=== PATIENT | female | born 1970 | race Hispanic/Latino ===

== ENCOUNTER 2016-08-07 15:52 | Emergency (ER) | payer BC ==
[2016-08-07] MEDS ORDERED: MOTRIN PO ONE (17:14)
--- NOTE | 2016-08-07 17:16 | Emergency Department Report ---
ED Extremity Problem HPI - General Chief complaint: Extremity Injury, Lower Stated complaint: LFT FOOT INJURY Time Seen by Provider: 08/07/16 17:08 Source: patient Mode of arrival: Ambulatory Limitations: No Limitations - History of Present Illness Initial comments: PT states when she was walking in the dark this am, she accidentally kicked a dresser. PT noticed bruising and swelling but it was too late to call out of work. PT went to work and was called off at 1530 so she could get her foot seen about. PT states her pain is 4/10 when not walking and 8/10 when walking or standing. PT states she took OtC Tylenol this am around 0600 but no relief of pain. PT states when she walks, she feels like her foot is popping. Onset/Timin -: Sudden, hour(s) Location: left, toe History of Same: No Radiation: proximal Severity scale (0 -10): 8 Quality: aching, sharp (with pressure ) Consistency: constant Improves with: elevation, rest Worsens with: weight bearing, walking, palpation Associated Symptoms: denies other symptoms - Related Data Home Medications Medication Instructions Recorded Confirmed Last Taken Omeprazole [PriLOSEC] 40 mg PO DAILY 04/13/14 10/12/15 10/11/15 Multivitamin Tab [Multiple Vitamin 1 each PO QDAY 09/24/15 10/12/15 10/11/15 TAB (Theragran)] Valsartan/Hydrochlorothiazide 1 tab PO QDAY 09/24/15 10/12/15 10/11/15 21:00 [Diovan Hct 160-25 mg] Previous Rx's Medication Instructions Recorded Last Taken Type HYDROcodone/APAP 5-325 [[place] 1 each PO Q6HR PRN #10 tablet 08/07/16 Unknown Rx 5/325] Ibuprofen [Motrin] 600 mg PO Q8H PRN #20 tablet 08/07/16 Unknown Rx Allergies Allergy/AdvReac Type Severity Reaction Status Date / Time No Known Allergies Allergy Verified 04/13/14 16:03 ED Review of Systems ROS: Stated complaint: LFT FOOT INJURY Other details as noted in HPI Comment: All other systems reviewed and negative Constitutional: denies: fever Cardiovascular: other (pt states she is currently on Diovan for htn) Musculoskeletal: as per HPI, joint swelling Skin: change in color Neurological: abnormal gait ED Past Medical Hx - Past Medical History Previous Medical History?: Yes Hx Hypertension: Yes (FOR 15 YRS) Hx GERD: Yes Hx Renal Disease: No Hx Seizures: No Hx HIV: No - Surgical History Past Surgical History?: Yes Additional Surgical History: tubal ligation hernia repair - Social History Smoking Status: Never Smoker Substance Use Type: None - Medications Home Medications: Home Medications Medication Instructions Recorded Confirmed Last Taken Type Omeprazole [PriLOSEC] 40 mg PO DAILY 04/13/14 10/12/15 10/11/15 History Multivitamin Tab [Multiple Vitamin 1 each PO QDAY 09/24/15 10/12/15 10/11/15 History TAB (Theragran)] Valsartan/Hydrochlorothiazide 1 tab PO QDAY 09/24/15 10/12/15 10/11/15 21:00 History [Diovan Hct 160-25 mg] HYDROcodone/APAP 5-325 [[place] 1 each PO Q6HR PRN #10 tablet 08/07/16 Unknown Rx 5/325] Ibuprofen [Motrin] 600 mg PO Q8H PRN #20 tablet 08/07/16 Unknown Rx ED Physical Exam - General Limitations: No Limitations General appearance: alert, in no apparent distress - Head Head exam: Present: atraumatic, normocephalic, normal inspection - Eye Eye exam: Present: EOMI. Absent: conjunctival injection - ENT ENT exam: Present: normal exam, normal external ear exam - Neck Neck exam: Present: normal inspection, full ROM - Respiratory Respiratory exam: Absent: respiratory distress, wheezes, accessory muscle use - Cardiovascular Cardiovascular Exam: Present: regular rate, normal rhythm - Extremities Exam Extremities exam: Present: tenderness, joint swelling - Expanded Lower Extremity Exam Left Ankle exam: Present: normal inspection, full ROM. Absent: tenderness Foot/Toe exam: Present: tenderness, swelling, ecchymosis (3rd MTP joint). Absent: tenderness at base of 5th metatarsal Neuro vascular tendon exam: Absent: pulse deficit Gait: Positive: antalgic - Neurological Exam Neurological exam: Present: alert, oriented X3 - Psychiatric Psychiatric exam: Present: normal affect, normal mood - Skin Skin exam: Present: warm, dry, intact, ecchymosis ED Course Vital Signs 08/07/16 08/07/16 15:57 18:07 Temperature 98.4 F Pulse Rate 111 H 88 Respiratory 18 18 Rate Blood Pressure 155/101 Blood Pressure 148/92 [Left] O2 Sat by Pulse 100 99 Oximetry - Reevaluation(s) Reevaluation #1: 08/07/16 17:31 PT aware of my interpretation of her XR. PT aware she will need ortho follow up. pt aware no driving, drinking, or working after narcotics. PT offered post op shoe, pt declined. PT states she has a hard sole post op shoe at home. Reevaluation #2: 08/07/16 17:35 pt aware of her initial bp reading and need for follow up - Pulse Oximetry Interpretation Digit-Finger Initial Pulse Oximetry Readin Actions Taken: none ED Medical Decision Making - Radiology Data Radiology results: image reviewed interpreted by me: Xr L foot - 3rd proximal phalange fx - Differential Diagnosis fracture, contusion Critical Care Time: No Critical care attestation.: If time is entered above; I have spent that time in minutes in the direct care of this critically ill patient, excluding procedure time. ED Disposition Clinical Impression: Toe fracture, left Qualifiers: Encounter type: initial encounter Toe: lesser toe Fracture type: closed Phalanx : proximal Fracture alignment: nondisplaced Qualified Code(s): S92.515A - Nondisplaced fracture of proximal phalanx of left lesser toe(s), initial encounter for closed fracture Disposition: DISCHARGED TO HOME OR SELFCARE Is pt being admited?: No Does the pt Need Aspirin: No Condition: Stable Instructions: Toe Fracture (ED), RICE Therapy (ED) Additional Instructions: Follow up with Ortho for your Toe Follow up with PCP for BP recheck No driving or ETOH after taking [place] Prescriptions: HYDROcodone/APAP 5-325 [[place] 5/325] 1 each PO Q6HR PRN #10 tablet PRN Reason: Pain Ibuprofen [Motrin] 600 mg PO Q8H PRN #20 tablet PRN Reason: Pain Referrals: KELLEY ABREU MD [Staff Physician] - 3-5 Days DANIEL HICKEY MD [Staff Physician] - 3-5 Days Forms: Work/School Release Form(ED) Time of Disposition: 17:39
[2016-08-07 18:09] VITALS: BP 148/92
--- NOTE | 2016-08-08 07:28 | XRay Report ---
LEFT FOOT, 2 views: History: Left foot injury. The bony architecture is intact. Bony alignment is normal. No soft tissue abnormalities are seen. The joint spaces appear preserved. IMPRESSION: Normal left foot.
== END 2016-08-07 18:07 | disposition home or self-care (01) ==
LOC: ED 15:52
DX: S92.515A Nondisplaced fracture of proximal phalanx of left lesser toe(s), initial encounter for closed fracture (principal); I10 Essential (primary) hypertension; K21.9 Gastro-esophageal reflux disease without esophagitis; W22.8XXA Striking against or struck by other objects, initial encounter; Y93.9 Activity, unspecified; Y92.9 Unspecified place or not applicable; Y99.9 Unspecified external cause status
CPT/HCPCS: 99283

== ENCOUNTER 2016-08-08 09:32 | Day surgery (SDC) | payer BC ==
[2016-08-08] MEDS ORDERED: NACL 0.9% 1000 ML 1,000 ML IV SCH (11:00)
[2016-08-08] MEDS ORDERED: DIPRIVAN 10 MG/ML IV ONE ×2 (11:34)
--- NOTE | 2016-08-08 11:50 | Anesthesia Consultation ---
Anesthesia Consult and Med Hx Date of service: 08/08/16 - Airway Anesthetic Teeth Evaluation: Good, Bridges (premanent upper front) ROM Head & Neck: Adequate Mental/Hyoid Distance: Adequate Mallampati Class: Class II Intubation Access Assessment: Probably Good - Pulmonary Exam CTA: Yes - Cardiac Exam Cardiac Exam: RRR - Pre-Operative Health Status ASA Pre-Surgery Classification: ASA3 Proposed Anesthetic Plan: MAC - Pulmonary Hx Smoking: No Hx Sleep Apnea: No - Cardiovascular System Hx Hypertension: Yes - Central Nervous System Hx Neuromuscular Disorder: No Hx Seizures: No CVA: No Hx Psychiatric Problems: No - Gastrointestinal Hx Gastroesophageal Reflux Disease: Yes - Endocrine Hx Renal Disease: No Hx Insulin Dependent Diabetes: No Hx Thyroid Disease: No - Other Systems Hx Alcohol Use: No Hx Cancer: No Hx Obesity: Yes
--- NOTE | 2016-08-08 11:51 | Anesthesia Day of Surgery ---
Anesthesia Day of Surgery - Day of Surgery Patient Examined: Yes Patient H&P Reviewed: Yes Patient is NPO: Yes
--- NOTE | 2016-08-08 12:56 | Short Stay Summary ---
Short Stay Documentation Date of service: 08/08/16 - History H&P: obtained from office - Allergies and Medications Current Medications: Allergies No Known Allergies Allergy (Verified 04/13/14 16:03) Home Medications Medication Instructions Recorded Confirmed Last Taken Type Omeprazole [PriLOSEC] 40 mg PO DAILY 04/13/14 08/08/16 08/07/16 History Multivitamin Tab [Multiple Vitamin 1 each PO QDAY 09/24/15 08/08/16 10/11/15 History TAB (Theragran)] Valsartan/Hydrochlorothiazide 1 tab PO QDAY 09/24/15 08/08/16 08/07/16 History [Diovan Hct 160-25 mg] HYDROcodone/APAP 5-325 [[place] 1 each PO Q6HR PRN #10 tablet 08/07/16 08/08/16 Unknown Rx 5/325] Ibuprofen [Motrin] 600 mg PO Q8H PRN #20 tablet 08/07/16 08/08/16 Unknown Rx Ranitidine HCl [Zantac 150 MG TAB] 150 mg PO DAILY 08/08/16 08/08/16 08/07/16 History Active Medications Sodium Chloride (Nacl 0.9% 1000 Ml) 1,000 mls @ 50 mls/hr IV DIRECT LOPEZ Last Admin: 08/08/16 10:32 Dose: 50 mls/hr - Brief post op/procedure progress note Date of procedure: 08/08/16 Pre-op diagnosis: Dysphagia Post-op diagnosis: other (Esophageal stricture, erosive esophagitis, hiatal hernia) Procedure: EGD with biopsy and balloon dilation Anesthesia: MAC Findings: 1. Stricture at 33 cm from incisors, dilated to 18 mm. 2. 5 cm hiatal hernia. 3. Scattered erosions extending to 29 cm from incisors - biopsied. Surgeon: STEF BOWLING Estimated blood loss: minimal Pathology: list (1. Distal esophagus) Specimen disposition: to lab Condition: stable - Disposition Condition at discharge: Good Disposition: DISCHARGED TO HOME OR SELFCARE Short Stay Discharge Plan Activity: no restrictions, advance as tolerated Diet: regular Follow up with: KETURAH ANTHONY MD [Primary Care Provider] - 7 Days
[2016-08-08 13:25] VITALS: BP 124/68
--- NOTE | 2016-08-08 15:05 | Post Anesthesia Evaluation ---
- Post Anesthesia Evaluation Patient Participated: Yes Airway Patent: Yes Stable Respiratory Function: Yes Nausea/Vomiting: No Temp > 96.8F: Yes Pain Manageable: Yes Adequeate Hydration: Yes Anesthesia Complications: No Block Receding Appropriately: Not Applicable Patient on Ventilator: No
--- NOTE | 2016-08-08 19:15 | Operative Report ---
UPPER ENDOSCOPY REPORT PROCEDURE: Upper endoscopy with biopsy and balloon dilation. PREOPERATIVE DIAGNOSIS: Dysphagia and gastroesophageal reflux disease. POSTOPERATIVE DIAGNOSES: Esophageal stricture, erosive esophagitis and hiatal hernia. SEDATION: MAC by Anesthesia. HISTORY: The patient is a 46-year-old woman with a longstanding history of GERD who has intermittent dysphagia to solids. She was last ____ in 2008. Symptoms are poorly controlled with omeprazole on 40 mg a day basis. Procedure, indications, risks, and benefits were explained and consent was obtained. The patient was placed in left lateral decubitus position and sedated. [employer] video upper endoscope was passed through the mouth and oropharynx into the descending duodenum. Scope was then gradually withdrawn with close inspection of the mucosa. FINDINGS: 1. Esophageal stricture located at 33 cm from the gums - balloon dilated from 15 to 18 mm with appropriate mucosal tearing noted at the latter 2 stages. 2. Erosive esophagitis with erosions with white base extending from 33 to 29 cm from the incisors. Biopsies obtained. 3. 5 cm hiatal hernia extending from 33 to 38 cm from the incisors. 4. Otherwise, normal esophagus and stomach. 5. Normal-appearing duodenal bulb and duodenum. The patient tolerated the procedure well without immediate complications. ESTIMATED BLOOD LOSS: Minimal. DEVICES: None left. IMPRESSION: 1. Distal esophageal stricture -- secondary to gastroesophageal reflux disease. Dilated to 18 mm. 2. Erosive esophagitis -- biopsied. 3. Hiatal hernia. 4. Otherwise, normal endoscopy. PLAN: 1. Follow up biopsies. 2. We will discuss increasing to b.i.d. PPI instead of daily PPI and nightly ranitidine as she is currently on. She is also to continue lifestyle changes. We have also discussed surgical approaches in the past and we will readdress that periodically. 3. Dilation p.r.n. JOB# [id number] HRC/NTS
== END 2016-08-08 09:33 | disposition home or self-care (01) ==
LOC: GIO 09:32
PROVIDERS: ATTEND Internal Medicine Gastroenterology
DX: K22.2 Esophageal obstruction (principal); K21.0 Gastro-esophageal reflux disease with esophagitis; K44.9 Diaphragmatic hernia without obstruction or gangrene; I10 Essential (primary) hypertension; G43.909 Migraine, unspecified, not intractable, without status migrainosus; E66.9 Obesity, unspecified; Z68.32 Body mass index [BMI] 32.0-32.9, adult; Z98.51 Tubal ligation status; Z98.890 Other specified postprocedural states
CPT/HCPCS: 43239; 43249; 81025; 88305; 88312; C1726; J2704; J7030